=== PATIENT | female | born 1980 | race Caucasian/White ===

== ENCOUNTER 2019-05-10 18:28 | Emergency (ER) | payer OTHER, SELFPAY ==
--- NOTE | 2019-05-10 18:41 | ED.GENADULT ---
HPI - General Adult General Chief complaint: Chest Pain Stated complaint: vomiting/chest pain Time Seen by Provider: 05/10/19 18:41 Source: patient Mode of arrival: ambulatory Limitations: no limitations History of Present Illness HPI narrative: 38-year-old female patient presents to the [facility] with complaints of vomiting and upper chest burning that started approximately 2 hours ago after she ate some barbecue chicken. Patient states she has been having some upper chest burning especially when she lays down at night for the past couple of days. States that the vomiting started today. Patient has been worked up for something similar to this before in the past and did have an EKG done which she states was normal at that time. Denies any coughing, shortness of breath. Denies any abdominal pain, or diarrhea. Patient did vomit prior to being checked into the [facility] today. Related Data Home Medications Medication Instructions Recorded Confirmed amlodipine 10 mg DAILY 05/10/19 05/10/19 bupropion HCl 100 mg PO BID 05/10/19 05/10/19 fluoxetine 20 mg DAILY 05/10/19 05/10/19 losartan 50 mg DAILY 05/10/19 05/10/19 pantoprazole 40 mg PO DAILY 05/10/19 05/10/19 Allergies Allergy/AdvReac Type Severity Reaction Status Date / Time No Known Allergies Allergy Verified 05/10/19 18:47 Review of Systems Review of Systems: Narrative: CONSTITUTIONAL: Denies fever, chills, or sweats. EYES: Denies visual changes, redness, or discharge. ENT: Denies rhinorrhea, congestion, sore throat, or otalgia. CARDIOVASCULAR: Positive upper burning chest pain, denies palpitations, or edema. RESPIRATORY: Denies cough or dyspnea. GASTROINTESTINAL: Denies abdominal pain, positive nausea, vomiting, denies diarrhea. GENITOURINARY: Denies dysuria or hematuria. SKIN: Denies rash or itching. MUSCULOSKELETAL: Denies back pain, joint pain, or myalgia. NEUROLOGIC: Denies headache, numbness, or weakness. PSYCHIATRIC: Denies anxiety or depression. [facility] Surgical History Surgical History (Updated 05/10/19 @ 18:43 by CHRISTOPHER Alcala) H/O adenoidectomy History of appendectomy Hx of tonsillectomy Social History Social History Gender identity (if verbalized by the patient): Female Comments At the time of my signature I agree with nursing past medical history, surgical, social, and family history. There is no relevant family history pertinent to the presenting complaint. Exam Narrative: Exam Narrative: GENERAL: Well-appearing, well-nourished, and in no acute distress. HEAD: Normocephalic, atraumatic. No tenderness noted to frontal maxillary sinuses on palpation. EYES: PERRLA and EOMI. ENT: Nares clear, no rhinorrhea or epistaxis. Mucous membranes moist. Bilateral TMs are clear no erythema or foreign bodies in the canal. Posterior pharynx no erythema, tonsillar margin, exudates or lesions present. NECK: Supple. No lymphadenopathy CHEST: Clear to auscultation. No respiratory distress. Patient able talk in clear complete sentences. HEART: Regular rate and rhythm. No murmur heard. Normal peripheral pulses. ABDOMEN: Soft, flat, nondistended. No guarding, rebound tenderness, or rigid. No pulsatilla masses. Bowel sounds present in all four quadrants. No organomegaly. Negative Rincon?s sign. No periumbicial tenderness. No Supra public tenderness or distension. Good femoral pulses bilaterally. No hernia noted. No scars or surface trauma. After exam patient did run to the bathroom and did have some active vomiting. EXTREMITIES: Normal range of motion. No edema. SKIN: Warm, dry, no rash. NEURO: No focal deficits. Alert and oriented x3. Course Reevaluation(s) Reevaluation #1: Reevaluated patient after her EKG was done and her Zofran was given. Patient states that she is feeling much better after receiving Zofran and is able to keep a little water down. Discussed with her that her EKG looks okay today h
[2019-05-10 18:43] VITALS: BP 151/87; PULSE 93; RESP 16; TEMP 37.2; O2SAT 98
[2019-05-10] MEDS: ONDANSETRON HCL ODT 4 MG TABLET PO (18:58)
--- NOTE | 2019-05-10 19:00 | ECG_ITS ---
Measurements Intervals [place] Rate: 106 P: 33 OH: 128 QRS: 1 QRSD: 89 T: 41 QT: 347 QTc: 463 Interpretive Statements SINUS TACHYCARDIA POSSIBLE LEFT ATRIAL ENLARGEMENT RSR' IN V1 OR V2, PROBABLY NORMAL VARIANT DELAYED PRECORDIAL R/S TRANSITION ABNORMAL ECG Electronically Signed On 05-11-2019 7:05:04 CDT by Larry Weber D.O.
== END 2019-05-10 19:22 | disposition home or self-care (01) ==
PROVIDERS: Emergency Provider Nurse Practitioner Family; PCP Physician Assistant
DX: K21.9 Gastro-esophageal reflux disease without esophagitis (principal); I10 Essential (primary) hypertension; R94.31 Abnormal electrocardiogram [ECG] [EKG]
CPT/HCPCS: 93005; 99213; A9270; G0463

== ENCOUNTER 2019-09-09 11:48 | Emergency (ER) | payer OTHER, SELFPAY ==
--- NOTE | ~2019-09-09 | CT_ITS ---
EXAMINATION: CT abdomen pelvis w con DATE: 09/09/2019 13:07 INDICATION: Mid abdominal pain. Lower back pain. Right flank pain. TECHNIQUE: Computed tomography (CT) of the abdomen and pelvis was performed with 100 cc Omnipaque 350 intravenous contrast. Automated exposure control and iterative reconstruction technique were employe d. Exam dose: 651.02 mGy-cm total exam DLP. COMPARISON: None. FINDINGS: The lower lung delaney are clear of infiltrate or consolidation. Heart size is within normal range. No pericardial or pleural effusion. Small sliding hiatal hernia. There are several stones in the region of the gallbladder neck pain, measuring up to 1.8 cm. The gall bladder wall measures up to approximately 2 mm thickness. No pericholecystic fluid or stranding is de tected. No bile duct or pancreatic duct dilatation. No hepatic or pancreatic space-occupying mass lesion or pancreatic calcification. Normal splenic size . No renal space occupying mass lesion or urinary tract calculus or hydroureteronephrosis. The urinary bladder is unremarkable. Bilateral fallopian tube inserts. The uterus is present. No adnexal mass lesion is detected. Normal caliber of the abdominal aorta. No intraperitoneal or retroperitoneal or pelvic mass lesion or adenopathy or ascites. No bowel obstruction, bowel wall thickening, pneumatosis or intraperitoneal free air. Probable append ectomy. Included skeletal structures are unremarkable. No suspicious osteolytic or osteoblastic lesions are n oted. IMPRESSION: Cholelithiasis Small sliding hiatal hernia Bilateral fallopian tube inserts Reviewed, dictated and finalized at [facility] Reviewed, dictated and finalized at [facility].
[2019-09-09 11:53] VITALS: BP 130/82; PULSE 89; RESP 18; TEMP 36.1; O2SAT 99
--- NOTE | 2019-09-09 12:10 | ED.ABDPAIN ---
HPI - Abdominal Pain General Chief Complaint: Abdominal Pain Stated Complaint: rt flank pain, rt abd pain Time Seen by Provider: 09/09/19 12:01 Source: patient Mode of arrival: ambulatory Limitations: no limitations History of Present Illness HPI narrative: 39 year old female with history of GERD who presents for evaluation of lower back pain and mid abdominal pain. This patient reports she has been having mild abdominal pain intermittently x 1 month. She also reports intermittently wakes up in the morning with nausea and vomiting. She has had no nausea or vomiting in 2 weeks. She states she thinks this is due to taking her GERD medication at night instead of the morning. She also reports lower back pain x 1 month. She is unable describe what makes pain better or worse. She has not taken anything for pain. Related Data Home Medications Medication Instructions Recorded Confirmed amlodipine 10 mg DAILY 05/10/19 05/10/19 bupropion HCl 100 mg PO BID 05/10/19 05/10/19 fluoxetine 20 mg DAILY 05/10/19 05/10/19 losartan 50 mg DAILY 05/10/19 05/10/19 pantoprazole 40 mg PO DAILY 05/10/19 05/10/19 Allergies Allergy/AdvReac Type Severity Reaction Status Date / Time No Known Allergies Allergy Verified 09/09/19 12:00 Review of Systems Constitutional: Constitutional: Denies chills and Denies fever(s) Respiratory: Respiratory: Denies cough and Denies dyspnea Gastrointestinal: Gastrointestinal: Reports abdominal pain, Reports nausea and Reports vomiting Genitourinary: Genitourinary: Reports nocturia and Reports urinary urgency PMFSH Past Medical History Medical History (Updated 09/09/19 @ 14:27 by Shameka Contreras MD) GERD (gastroesophageal reflux disease) Surgical History Surgical History (Updated 05/10/19 @ 18:43 by CHRISTOPHER Alcala) H/O adenoidectomy History of appendectomy Hx of tonsillectomy Social History Social History Gender identity (if verbalized by the patient): Female Exam Narrative: Exam Narrative: GENERAL: Well-appearing, well-nourished, and in no acute distress. HEAD: Normocephalic, atraumatic EYES: PERRLA and EOMI, conjunctiva clear without discharge THROAT:Mucous membranes moist, NECK: Supple, RESPIRATORY: No respiratory distress, Airway patent, Respirations non-labored, Clear to auscultation without rales, rhonchi or wheeze HEART: Regular rate and rhythm. No murmur heard. Normal peripheral pulses. ABDOMEN: Soft, nontender, nondistended, normal active bowel sounds. No masses. No rebound or guarding, No organomegaly. EXTREMITIES: No edema, normal strength with full range of motion. SKIN: Warm, dry, normal color without rash NEURO: Alert and oriented x3. CN 2-12 grossly intact. No focal deficits. PSYCH: Normal mood and affect. Course Reevaluation(s) Reevaluation #1: I Discussed with patient that CT shows gallstones. It is unclear if this etiology of her pain. She has not abdominal tenderness currently so she will be on low fat diet with follow up as outpatient. Date: 09/09/19 Time: 14:24 Vital Signs Vital signs: Vital Signs Temperature 97.0 F L 09/09/19 11:53 Pulse Rate 89 09/09/19 11:53 Respiratory Rate 18 09/09/19 11:53 Blood Pressure 130/82 09/09/19 11:53 Pulse Oximetry 99 09/09/19 11:53 Temperature 97.0 F L 09/09/19 13:13 Pulse Rate 80 09/09/19 13:14 Respiratory Rate 18 09/09/19 13:14 Blood Pressure 118/76 09/09/19 13:14 Pulse Oximetry 100 09/09/19 13:14 MDM - Abdominal Pain Lab Data Attestation: I reviewed the patient's lab results. Result diagrams: 09/09/19 12:14 09/09/19 12:14 Labs: Lab Results 09/09/19 09/09/19 09/09/19 Range/Units 12:14 12:14 12:14 WBC 11.5 H (4.5-10.0) K/mm3 RBC 4.65 (4.2-5.4) M/mm3 Hgb 14.3 (12.0-15.0) g/dL Hct 43.2 (37.0-47.0) % MCV 92.9 (80-100) fl MCH 30.8 (26-34) p
[2019-09-09] MEDS: ONDANSETRON INJ 4 MG/2 ML VIAL IV PUSH (12:14)
[2019-09-09] MEDS: KETOROLAC 30 MG/ML VIAL (*BKC) IV PUSH (12:14)
[2019-09-09 12:31] LABS: Basophils Absolute Auto 0.1 K/mm3 (0.0-0.1); Basophils Percent Auto 0.7 % (0.2-1.2); Eosinophils Absolute Auto 0.3 K/mm3 (0-0.3); Eosinophils Percent Auto 2.5 % (0-4.4); Hematocrit 43.2 % (37.0-47.0); Hemoglobin 14.3 g/dL (12.0-15.0); Immature Granulocyte Absolute 0.03 K/mm3 (0.00-0.031); Immature Granulocyte Percent A 0.3 % (0-0.5); Lymphocytes Absolute Auto 1.41 K/mm3 (0.9-3.2); Lymphocytes Percent Auto 12.3 % (18.3-44.2); Mean Corpuscular HGB Conc 33.1 g/dl (32-36); Mean Corpuscular Hemoglobin 30.8 pg (26-34); Mean Corpuscular Volume 92.9 fl (80-100); Mean Platelet Volume 10.9 fl (7.4-10.4); Monocytes Absolute Auto 0.6 K/mm3 (0.1-0.6); Monocytes Percent Auto 5.6 % (2.6-8.5); Neutrophils Percent Auto 78.6 % (45.5-73.1); Platelet Count Result 347 k/mm3 (150-375); Red Blood Count 4.65 M/mm3 (4.2-5.4); White Blood Count 11.5 K/mm3 (4.5-10.0)
[2019-09-09 12:38] LABS: Add Urine Microscopic? YES; Appearance Urine Cloudy (Clear); Bilirubin Urine Negative (Negative); Blood Urine Negative (Negative); Color Urine Yellow (Yellow); Glucose Urine UA Negative (Negative); Ketones Urine Negative (Negative); Leukocyte Esterase Ur Negative LEU/UL (Negative); Mucus Urine Heavy /lpf; Nitrate Urine Negative (Negative); Protein Urine Negative (Negative); Specific Grav Ur 1.029 (1.001-1.035); Squamous Epithelial Cell Urine Many /hpf (Few); Urobilinogen Urine Negative mg/dL (<2.0); WBC Urine 0-3 /hpf
[2019-09-09 12:43] LABS: Alanine Aminotransferase 21 U/L (4-35); Albumin Level 4.5 g/dL (3.5-5.1); Alkaline Phosphatase 118 U/L (38-126); Anion Gap 13.8 mmol/L (7-16); Aspartate Amino Transferase 24 U/L (14-36); Bilirubin,Total 0.2 mg/dL (0.2-1.3); Blood Urea Nitrogen 9 mg/dL (7-17); Carbon Dioxide 24 mmol/L (22-30); Chloride 104 mmol/L (98-107); Estimated CRCL calculation 105 ml/min; Estimated Glomerular Filt Rate > 60; Glucose 110 mg/dL (65-105); Lipase 72 U/L (23-300); Potassium 3.8 mmol/L (3.4-5.0); Sodium 138 mmol/L (137-145)
[2019-09-09 13:13] VITALS: TEMP 36.1
[2019-09-09 13:14] VITALS: BP 118/76; PULSE 80; RESP 18; O2SAT 100
== END 2019-09-09 14:50 | disposition home or self-care (01) ==
PROVIDERS: Emergency Provider General Practice; PCP Physician Assistant
DX: K80.20 Calculus of gallbladder without cholecystitis without obstruction (principal); K21.9 Gastro-esophageal reflux disease without esophagitis; K44.9 Diaphragmatic hernia without obstruction or gangrene
CPT/HCPCS: 36415; 74177; 80053; 81001; 81025; 83690; 85025; 96374; 96375; 99284; J1885; J2405; Q9967

== ENCOUNTER 2019-09-27 12:46 | Outpatient (CLI) | payer OTHER, SELFPAY ==
[2019-09-27 13:28] LABS: Amylase 81 U/L (30-110)
== END 2019-09-27 12:47 | disposition home or self-care (01) ==
PROVIDERS: PCP Physician Assistant; Visit Provider Surgery
DX: K80.10 Calculus of gallbladder with chronic cholecystitis without obstruction (principal)
CPT/HCPCS: 36415; 82150; 86850; 86900; 86901

== ENCOUNTER 2019-10-09 00:30 | Outpatient (CLI) | payer OTHER, SELFPAY ==
[2019-10-09 19:34] LABS: SARS-CoV-2 RNA PCR Negative
== END 2019-10-09 00:31 | disposition home or self-care (01) ==
LOC: ANHCOVIDDT 00:30
PROVIDERS: PCP Physician Assistant; Visit Provider Surgery
DX: Z01.812 Encounter for preprocedural laboratory examination (principal); Z20.828 Contact with and (suspected) exposure to other viral communicable diseases
CPT/HCPCS: 87635; C9803; U0003

== ENCOUNTER 2019-10-11 02:17 | Day surgery (SDC) | payer OTHER, SELFPAY ==
[2019-09-25 13:31] VITALS: BMI 31.4
[2019-10-11] VITALS (11 sets, daily range): BP systolic 99–137; BP diastolic 59–88; PULSE 68–84; RESP 12–19; TEMP 36.5–36.8; O2SAT 92–99
[2019-10-11] MEDS: KETOROLAC 15 MG/ML VIAL (*BKC) IV PUSH (10:24)
[2019-10-11] MEDS: LACTATED RINGERS 1,000 ML 30 ML IV CONT ×2 (10:24→13:02)
[2019-10-11] MEDS: ACETAMINOPHEN 500 MG TABLET 1000 MG PO (10:25)
[2019-10-11] MEDS: SCOPOLAMINE 1.5 MG PATCH TRANSDERM (10:40)
--- NOTE | 2019-10-11 10:54 | WPDHPUPDATE1 ---
History and Physical Update Update Date/Time: 10/11/19 10:54 History and Physical has been reviewed, including an updated exam of the patient. There are NO changes in the patient's condition. Risks, benefits, and alternatives have been discussed and questions answered. Patient agrees to proceed with procedure.
--- NOTE | 2019-10-11 11:32 | WPDANESEPPF ---
Anes - Initial Pre Proc Eval Procedure: Operation Date: 10/11/19 12:00 Proposed Procedures p Laparoscopic Cholecystectomy - Jane Burns MD Date/Time: 10/11/19 11:32 Surgeon: Jane Burns MD Pre Op Diagnosis: Chronic Cholecystitis With Cholelithiasis Patient Data Age: 39 Gender: F Height: 5 ft 7 in Weight: 90.5 kg Last Vital Signs Temp 36.8 C 10/11/19 10:57 Pulse 82 10/11/19 10:57 Resp 18 10/11/19 10:57 BP 127/81 10/11/19 10:57 Pulse Ox 99 10/11/19 10:57 Allergies Allergy/AdvReac Type Severity Reaction Status Date / Time No Known Allergies Allergy Verified 10/11/19 10:20 Home Medications Medication Instructions Recorded Confirmed Type amlodipine 10 mg PO HS 05/10/19 10/11/19 History bupropion HCl 100 mg PO BID 05/10/19 10/11/19 History fluoxetine 20 mg PO DAILY 05/10/19 10/11/19 History losartan 50 mg PO HS 05/10/19 10/11/19 History pantoprazole 40 mg PO DAILY 05/10/19 10/11/19 History Patient hx anesthesia problems: post op nausea/vomiting Family hx anesthesia problems: none PMFSH Past Medical History Medical History Depression GERD (gastroesophageal reflux disease) Hypertension Surgical History Surgical History H/O adenoidectomy History of appendectomy History of placement of ear tubes Hx of tonsillectomy Social History Social History Smoking packs per day: 0.5 Smoking cigarettes per day: 10.0 Years smoked: 10 Smoking pack-years: 5.00 Smoking status: Former smoker Tobacco type: cigarettes Second hand tobacco smoke exposure: No Smoking end date: 02/25/09 Alcohol intake: current Drinks per week: 2 Substance use: never Living arrangements: alone Additional occupation/education comments: [employer] Gender identity (if verbalized by the patient): Female Spiritual care concerns: No Anes - Eval Final PreProcedure Day of Procedure 08/26/20 11:32 Patient weight: obese Heart: regular rate and rhythm Lungs: decreased breath sounds Airway: Mallampati scale class II Neurological: alert and oriented Last oral intake: >/= 8 hours ASA classification: III Emergent: no Anesthetic plan: proceed Anesthesia type and monitoring: general ETT and standard monitoring Informed Consent: The patient's anesthetic plan and its attendant risks and benefits were discussed with the patient/family/POA. Questions were solicited and answers provided to the satisfaction of the patient/family/POA.
[2019-10-11] MEDS: ceFAZolin 2 GM/D5W 50 ML 2 GM/50 ML BAG IVPB (11:51)
[2019-10-11] MEDS: BUPIVACAINE/EPINEPHRINE 0.5% 30 ML VIAL INFILTRATE (12:19)
--- NOTE | 2019-10-11 13:22 | PM.PROC ---
Procedure Note - Detailed Date of procedure: 10/11/19 Pre-op diagnosis: Chronic Cholecystitis With Cholelithiasis Post-op diagnosis: other (acute hydrops cholecystitis, cholelithiasis) Procedure performed: laparoscopic cholecystectomy Description of procedure: The patient was taken to the operating room placed in the supine position. After adequate induction of general anesthesia, the patient was prepped and draped in normal sterile fashion. A time-out was then performed to verify the patient's identity as well as the procedure being performed. I then made a 5 mm incision in the infraumbilical region. Through this, a Veress needle was placed into the peritoneal cavity and CO2 gas was then insufflated. After adequate pneumoperitoneum was achieved, the Veress needle was removed and a 5 mm trocar was placed through this incision. I then placed the laparoscope through this trocar site and under direct visualization placed a further 12 mm subxiphoid port as well as 2 additional 5 mm ports in the right upper abdomen. The gallbladder was then identified and was noted to be very inflamed and distended. Given the inflammation and distension, I had to decompress the GB c an ovarian needle. At this point, it was noted the pt had acute hydrops cholecystitis. I was then able to place a grasper at the dome of the gallbladder and this was retracted anterior and cephalad up over the liver. A 2nd retractor was then placed at the infundibulum and retracted laterally, this allowed visualization of the triangle of Calot. I then was able to visualize the cystic duct in its entirety from its proximal insertion into the gallbladder, to its distal junction with the common hepatic/common bile duct junction. The GB was noted to be quite inflammed and friable, a large stone was noted to be impacted at the neck of the GB. At this point, I carefully skeletonized the proximal cystic duct with the [place] dissector. I then clipped and transected the proximal cystic duct. Next I visualized the cystic artery. Again the artery was skeletonized, clipped, and transected. I then used the Bovie cautery to take down the peritoneal attachments of the gallbladder off the liver bed. Once the gallbladder specimen was completely detached, an endo-pouch was placed through the 12 mm port site. I then placed the gallbladder specimen into the Endo pouch and removed the endo-pouch from the 12 mm port site. The specimen will now be sent to pathology for further review. I then copiously irrigated the right upper quadrant. Hemostasis was noted in the liver bed, the clips were noted to be in good position on both the cystic duct stump and the cystic artery stump. No other pathology was noted in the right upper quadrant. I then moved the laparoscope to the subxiphoid port. No iatrogenic injury or other pathology was noted in the lower abdomen. At this point, the abdomen was desufflated and all ports removed. The fascia of the 12 mm subxiphoid port was closed with a 0 Vicryl figure of 8 suture. All port sites were then closed with 4.O Monocryl subcuticular sutures. Dermabond was placed on each incision. The patient tolerated the procedure well, was extubated in the operating room postoperative and will be transferred to the recovery room in stable condition. Implants: none Anesthesia: GETA Surgeon: Jane Burns MD Estimated blood loss (mL): 10 Drains: No Packing: No Pathology: yes Complications: No immediate complications Condition: stable Disposition: PACU Findings: acute hydrops cholecystitis, cholelithiasis
== END 2019-10-11 16:10 | disposition home or self-care (01) ==
PROVIDERS: PCP Physician Assistant; Visit Provider Surgery
PROC: 0FT44ZZ Resection of Gallbladder, Percutaneous Endoscopic Approach (ICD-10-PCS; CPT 47562; principal; 2019-10-11 12:00)
DX: K80.00 Calculus of gallbladder with acute cholecystitis without obstruction (principal); K82.8 Other specified diseases of gallbladder; K82.1 Hydrops of gallbladder; I10 Essential (primary) hypertension; K21.9 Gastro-esophageal reflux disease without esophagitis; F32.9 Major depressive disorder, single episode, unspecified; E66.9 Obesity, unspecified; Z68.31 Body mass index [BMI] 31.0-31.9, adult; Z87.891 Personal history of nicotine dependence
CPT/HCPCS: 47562; 88304; A9270; J0690; J1100; J1170; J1885; J2250; J2405; J2704; J2710; J3010; J7030; J7120

== ENCOUNTER 2022-06-28 14:32 | Emergency (ER) | payer OTHER, SELFPAY ==
[2022-06-28 14:47] VITALS: BP 126/106; PULSE 100; RESP 12; TEMP 36.9; O2SAT 98
--- NOTE | 2022-06-28 15:30 | ED.URI ---
HPI - URI/Sore Throat General Chief Complaint: Upper Respiratory Infection Stated Complaint: Sinus/Cough/Throat Time Seen by Provider: 06/28/22 15:30 Source: patient and RN notes reviewed Mode of arrival: ambulatory Limitations: no limitations History of Present Illness HPI Narrative: 42-year-old female presented for complaint of cough for 3 days. Cough is nonproductive and causes chest pain and wheezing with coughing at times. Denies associated shortness of breath, wheezing, nausea vomiting, fevers or chills. She took 1 allergy tablet yesterday without any change in symptoms. Declines testing for virus/strep. Denies sick contacts. MD elicited complaint: cough Related Data Allergies Allergy/AdvReac Type Severity Reaction Status Date / Time No Known Allergies Allergy Verified 06/28/22 14:35 Review of Systems Review of Systems: CONSTITUTIONAL: Denies malaise, chills, sweats, fever EYES: Denies visual changes, redness, or discharge ENT: Reports rhinorrhea, denies sinus pain, otalgia, sore throat CARDIOVASCULAR: Denies chest pain, palpitations, edema RESPIRATORY: Reports cough, post nasal drainage. Denies dyspnea GASTROINTESTINAL: Denies abdominal pain, nausea, vomiting, diarrhea SKIN: Denies rash or itching MUSCULOSKELETAL: Denies myalgia NEUROLOGIC: Denies headache PMFSH Past Medical History Medical History Depression GERD (gastroesophageal reflux disease) Hypertension Surgical History Surgical History H/O adenoidectomy History of appendectomy History of placement of ear tubes Hx of tonsillectomy Social History Social History Smoking packs per day: 0.5 Smoking cigarettes per day: 10.0 Years smoked: 10 Smoking pack-years: 5.00 Smoking status: Former smoker Tobacco type: cigarettes Second hand tobacco smoke exposure: No Smoking end date: 02/25/09 Alcohol intake: current Drinks per week: 2 Substance use: never Living arrangements: alone Occupation/Education: occupation 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 TM pearly betancourt with dull light reflex bilaterally; no tragal tenderness. Oropharynx erythematous, tonsils 2+ without exudate, no drooling, no hoarseness, no trismus, uvula midline. NECK: Supple. No lymphadenopathy CHEST: Clear to auscultation, breath sounds equal. No wheezing, rhonchi, rales, or stridor. No respiratory distress, speaks in full sentences. HEART: Regular rate and rhythm. No murmur heard. SKIN: Warm, dry, no rash. NEURO: Alert and oriented x3. PSYCH: Normal mood and affect Course Course Emergency Course: Patient is aware of diagnosis, understands and agrees to treatment plan. Anticipatory guidance given. Patient agrees to follow-up as directed and is aware of reasons to seek care at the emergency department. Portions of this record may have been created with voice recognition software Level of Care: Express Care Visit Vital Signs Vital signs: Vital Signs Temperature 98.5 F 06/28/22 14:47 Pulse Rate 100 06/28/22 14:47 Respiratory Rate 12 06/28/22 14:47 Blood Pressure 126/106 H 06/28/22 14:47 Pulse Oximetry 98 06/28/22 14:47 Oxygen Delivery Room Air 06/28/22 14:47 Temperature 98.5 F 06/28/22 14:47 Pulse Rate 100 06/28/22 14:47 Respiratory Rate 12 06/28/22 14:47 Blood Pressure 126/106 H 06/28/22 14:47 Pulse Oximetry 98 06/28/22 14:47 Oxygen Delivery Room Air 06/28/22 14:47 reviewed MDM - URI/Sore Throat MDM Narrative Medical decision making narrative: Discussed physical exam findings. Advised supportive measur
== END 2022-06-28 15:43 | disposition home or self-care (01) ==
PROVIDERS: Emergency Provider Nurse Practitioner Family; PCP Physician Assistant
DX: B34.9 Viral infection, unspecified (principal); Z87.891 Personal history of nicotine dependence; K21.9 Gastro-esophageal reflux disease without esophagitis; I10 Essential (primary) hypertension
CPT/HCPCS: 99213; G0463

== ENCOUNTER 2022-08-03 17:18 | Emergency (ER) | payer OTHER, SELFPAY ==
[2022-08-03 17:57] VITALS: BP 153/93; PULSE 98; RESP 16; TEMP 36.8; O2SAT 100
--- NOTE | 2022-08-03 18:05 | ED.URI ---
HPI - URI/Sore Throat General Chief Complaint: Upper Respiratory Infection Stated Complaint: Sore Throat Time Seen by Provider: 08/03/22 18:06 History of Present Illness HPI Narrative: 42-year-old female presenting for complaint of sore throat yesterday. Also reports cough for about 3 weeks now productive of green sputum. She denies shortness of breath, wheezing, nausea, vomiting, fevers or chills. Denies known sick contacts. She is not taking anything for symptoms. Related Data Allergies Allergy/AdvReac Type Severity Reaction Status Date / Time No Known Allergies Allergy Verified 06/28/22 14:35 Review of Systems Review of Systems: CONSTITUTIONAL: Denies body aches, fever, chills, or sweats. EYES: Denies visual changes, redness, or discharge. ENT: Reports sore throat denies rhinorrhea, congestion, or otalgia. CARDIOVASCULAR: Denies chest pain, palpitations, or edema. RESPIRATORY: Reports cough denies dyspnea. GASTROINTESTINAL: Denies abdominal pain, nausea, vomiting, or diarrhea. SKIN: Denies rash, itching, or wounds. MUSCULOSKELETAL: Denies back pain, joint pain, or myalgia. NEUROLOGIC: Denies headache PMFSH Past Medical History Medical History Depression GERD (gastroesophageal reflux disease) Hypertension Surgical History Surgical History H/O adenoidectomy History of appendectomy History of placement of ear tubes Hx of tonsillectomy Social History Social History Smoking packs per day: 0.5 Smoking cigarettes per day: 10.0 Years smoked: 10 Smoking pack-years: 5.00 Smoking status: Former smoker Tobacco type: cigarettes Second hand tobacco smoke exposure: No Smoking end date: 02/25/09 Alcohol intake: current Drinks per week: 2 Substance use: never Living arrangements: alone Occupation/Education: occupation 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 EYES: conjunctivae clear ENT: Mucous membranes moist. Oropharynx erythematous without lesions. Tonsils enlarged 2+ with exudate. No drooling, no hoarseness, no trismus, uvula midline. No tripod positioning, hot potato voice, or soft palate swelling. NECK: Supple. No lymphadenopathy CHEST: Clear to auscultation, breath sounds equal. No respiratory distress, speaks in full sentences. HEART: Regular rate and rhythm. No murmur heard. SKIN: Warm, dry, no rash. NEURO: Alert and oriented x3. Course Course Emergency Course: Patient is aware of diagnosis, understands and agrees to treatment plan. Anticipatory guidance given. Patient agrees to follow-up as directed and is aware of reasons to seek care at the emergency department. Portions of this record may have been created with voice recognition software Level of Care: Express Care Visit Vital Signs Vital signs: Vital Signs Temperature 98.3 F 08/03/22 17:57 Pulse Rate 98 08/03/22 17:57 Respiratory Rate 16 08/03/22 17:57 Blood Pressure 153/93 H 08/03/22 17:57 Pulse Oximetry 100 08/03/22 17:57 Oxygen Delivery Room Air 08/03/22 17:57 Temperature 98.3 F 08/03/22 17:57 Pulse Rate 98 08/03/22 17:57 Respiratory Rate 16 08/03/22 17:57 Blood Pressure 153/93 H 08/03/22 17:57 Pulse Oximetry 100 08/03/22 17:57 Oxygen Delivery Room Air 08/03/22 17:57 MDM - URI/Sore Throat MDM Narrative Medical decision making narrative: strep result reviewed with pt. Will send abx at this time due to PE and cc. Advise supportive treatments. Patient is appropriate for outpatient treatment and follow-up. Differential Diagnosis Differential diagnosis: Likely upper respiratory infection, viral infection and pharyn
== END 2022-08-03 18:45 | disposition home or self-care (01) ==
PROVIDERS: Emergency Provider Nurse Practitioner Family; PCP Physician Assistant
DX: J02.9 Acute pharyngitis, unspecified (principal); Z87.891 Personal history of nicotine dependence; K21.9 Gastro-esophageal reflux disease without esophagitis; I10 Essential (primary) hypertension
CPT/HCPCS: 87081; 87880; 99213; G0463

== ENCOUNTER 2023-10-15 09:26 | Emergency (ER) | payer OTHER, SELFPAY ==
--- NOTE | ~2023-10-15 | XR_ITS ---
Clinical Indication: Cough PA and lateral views of the chest: Comparison: None Findings: The lungs are clear, without evidence of focal consolidation or pleural effusion. Cardiome diastinal silhouette is within normal limits. Bones and soft tissues are unremarkable. Impression: Normal chest. Reviewed, dictated and finalized at location . Impression: Normal chest.
[2023-10-15 09:38] VITALS: BP 174/108; PULSE 99; RESP 20; TEMP 36.6; O2SAT 99
--- NOTE | 2023-10-15 10:13 | ED.URI ---
HPI - URI/Sore Throat General Chief Complaint: Upper Respiratory Infection Stated Complaint: Cough,chest tightness, SOB Time Seen by Provider: 10/15/23 10:13 Source: patient, RN notes reviewed and old records reviewed Mode of arrival: ambulatory Limitations: no limitations History of Present Illness HPI Narrative: Patient presents with complaints of 4 day history of runny nose,, body aches. She reports negative COVID at work yesterday. She reports she is having difficulty sleeping due to her symptoms. Patient is hypertensive, she admits that she does not take her medications as prescribed. She is unable to say when she last took her blood pressure medications. She denies any fever, chills, sweats. Denies headache Related Data Allergies Allergy/AdvReac Type Severity Reaction Status Date / Time No Known Allergies Allergy Verified 10/15/23 10:06 Review of Systems Review of Systems: All systems reviewed & are unremarkable except as noted in HPI and below Constitutional: Constitutional: Reports no additional constitutional complaints, Reports body ache(s) and Reports lethargy ENT: Reports system reviewed and no additional complaints, except as documented and Reports as per HPI Cardiovascular: Cardiovascular: Reports as per HPI and Reports no additional cardiovascular complaints Respiratory: Respiratory: Reports as per HPI and Reports no additional respiratory complaints Gastrointestinal: Gastrointestinal: Reports no additional gastrointestinal complaints Musculoskeletal: Musculoskeletal: Reports no additional musculoskeletal complaints and Reports as per HPI [facility] Past Medical History Medical History (Updated 10/15/23 @ 11:12 by Karina Kauffman APRN) Depression GERD (gastroesophageal reflux disease) Hypertension Surgical History Surgical History H/O adenoidectomy History of appendectomy History of placement of ear tubes Hx of tonsillectomy Social History Social History Smoking packs per day: 0.5 Smoking cigarettes per day: 10.0 Years smoked: 10 Smoking pack-years: 5.00 Smoking status: Former smoker Tobacco type: cigarettes Second hand tobacco smoke exposure: No Smoking end date: 02/25/09 Alcohol intake: current Drinks per week: 2 Substance use: never Living arrangements: alone Occupation/Education: occupation 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 There is no relevant family history pertinent to the patient complaint. Exam Narrative: Lung sounds improved after neb treatment and 1 dose of steroids. Discussed elevated blood pressure at length. Patient admits she has not been taking medication. She does have prescribed medication at home. She reports she will take it when she gets there and monitor her pressure. She verbalizes understanding of importance of taking all medications as prescribed Const: General: cooperative, no acute distress, alert and awake Orientation/consciousness: oriented to person, oriented to place and oriented to time HENMT: Head: normal to inspection Resp: Effort & Inspection: normal respiratory effort and able to speak in complete sentences Auscultation: clear to auscultation bilaterally, no crackles, no rales, no rhonchi and no wheezes Cardio: Palpation: normal PMI Rate: regular rate Rhythm: regular rhythm Heart sounds: S1 normal heart sound present and S2 normal heart sound present Neuro: General: oriented to person, oriented to place and oriented to time Cranial nerves: Yes CN's II-XII intact bilaterally Psych: Appearance: grossly normal Thought process: Normal thought process present Insight: Good insight
[2023-10-15] MEDS: predniSONE 20 MG TABLET 60 MG PO (10:35)
[2023-10-15] MEDS: IPRATROPIUM 0.5 MG/ALBUTEROL SULFATE 2.5 MG AMPUL.NEB 3 ML INHALATION (10:36)
[2023-10-15 10:40] LABS: EDINFLUASCREEN Negative; EDINFLUBSCREEN Negative
[2023-10-15 11:09] VITALS: BP 180/120
== END 2023-10-15 11:30 | disposition home or self-care (01) ==
PROVIDERS: Emergency Provider Nurse Practitioner Family; PCP Physician Assistant
DX: J06.9 Acute upper respiratory infection, unspecified (principal); Z87.891 Personal history of nicotine dependence; K21.9 Gastro-esophageal reflux disease without esophagitis; I10 Essential (primary) hypertension
CPT/HCPCS: 71046; 87804; 94640; 99213; G0463; J7512

== ENCOUNTER 2024-03-13 16:50 | Emergency (ER) | payer OTHER, SELFPAY ==
[2024-03-13 16:53] VITALS: BP 188/119; PULSE 91; RESP 16; TEMP 36.4; O2SAT 100
--- NOTE | 2024-03-13 18:13 | ED_ITS ---
HPI - Female Genitourinary General Chief complaint: Urogenital-Female Stated complaint: UTI Time Seen by Provider: 03/13/24 18:06 Source: patient and RN notes reviewed Mode of arrival: ambulatory Limitations: no limitations History of Present Illness HPI Narrative: Patient presents today complaining of dysuria, low back pain, hesitancy, and low abdominal pain since yesterday. Denies fever. She has been taking Tylenol with some relief. No recent antibiotics. States she has not taken her blood pressure medication today. Related Data Home Medications ?Medication ?Instructions ?Recorded ?Confirmed ?Last Taken ?Type amlodipine 10 mg tablet mg 03/13/24 Unknown History atorvastatin 20 mg tablet mg 03/13/24 Unknown History fluoxetine 20 mg capsule mg 03/13/24 Unknown History losartan 100 mg tablet mg 03/13/24 Unknown History metoprolol succinate 50 mg mg PO 03/13/24 Unknown History tablet,extended release 24 hr Allergies Allergy/AdvReac Type Severity Reaction Status Date / Time No Known Allergies Allergy Verified 03/13/24 16:54 Review of Systems Review of Systems: CONSTITUTIONAL: Denies body aches, fever, chills, or sweats. EYES: Denies visual changes, redness, or discharge. ENT: Denies rhinorrhea, congestion, sore throat, or otalgia. CARDIOVASCULAR: Denies chest pain, palpitations, or edema. RESPIRATORY: Denies cough or dyspnea. GASTROINTESTINAL: Denies abdominal pain, nausea, vomiting, or diarrhea. GENITOURINARY: + dysuria, hesitancy, low back pain SKIN: Denies rash, itching, or wounds. MUSCULOSKELETAL: Denies joint pain, or myalgia. NEUROLOGIC: Denies headache, numbness, tingling, or weakness. PSYCH: Denies depression or anxiety. [facility] Past Medical History Medical History Depression Hypertension GERD (gastroesophageal reflux disease) Surgical History Surgical History History of placement of ear tubes Hx of tonsillectomy H/O adenoidectomy History of appendectomy Social History Social History Smoking packs per day: 0.5 Smoking cigarettes per day: 10.0 Years smoked: 10 Smoking pack-years: 5.00 Smoking status: Former smoker Tobacco type: cigarettes Second hand tobacco smoke exposure: No Smoking end date: 02/25/09 Alcohol intake: current Drinks per week: 2 Substance use: never Living arrangements: alone Occupation/Education: occupation Additional occupation/education comments: [employer] Gender identity (if verbalized by the patient): Female Spiritual care concerns: No Comments At time of signature, I have reviewed and agree with nursing past medical, surgical, social and family history unless otherwise noted. Please see nursing chart for further information. There is no relevant family history pertinent to the presenting complaint Exam Narrative: GENERAL: Well-appearing, well-nourished, and in no acute distress. HEAD: Normocephalic, atraumatic. EYES: EOMI. No redness or drainage. Conjunctivae normal. ENT: Mucous membranes pink and moist. NECK: Normal AROM. CHEST: No respiratory distress. Clear to auscultation. HEART: Regular rate and rhythm. No murmur appreciated. ABDOMEN: Soft, nontender, nondistended, normal active bowel sounds. -CVAT MUSCULOSKELETAL: No bony tenderness. EXTREMITIES: Normal range of motion. No edema. SKIN: Warm, dry, no rash. Capillary refill normal. Normal skin turgor. NEURO: No focal deficits. Alert and oriented x3. Gait steady. PSYCH: Normal affect. No signs of depression or anxiety. Course Course Level of Care: Express Care Visit Vital Signs Vital signs: Vital Signs Temperature 97.5 F L 03/13/24 16:53 Pulse Rate 91 03/13/24 16:53 Respiratory Rate 16 03/13/24 16:53 Blood Pressure 188/119 H 03/13/24 16:53 Pulse Oximetry 100 03/13/24 16:53 Oxygen Delivery Room Air 03/13/24 16:53 Temperature 97.5 F L 03/13/24 16:53 Pulse Rate 91 03/13/24 16:53 Respiratory Rate 16 03/13/24 16:53 Blood Pressure 188/119 H 03/13/24 16:53 Pulse Oximetry 100 03/13/24 16:53 Oxygen Delivery Room Air 03/13/24 16:53 Reviewed MDM - Female Genitourinary MDM Narrative Medical decision making narrative: Urinalysis is consistent with UTI. Prescription for Augmentin sent to pharmacy. Culture pending. Anticipatory guidance given. ED precautions given. Differential Diagnosis Differential diagnosis: Likely urinary tract infection, vaginitis, cystitis and other (Pyelonephritis) Lab Data Attestation: I reviewed the patient's lab results. Labs: Lab Results 03/13/24 Range/Units 17:17 POC Urine Color Yellow POC Urine Clarity Cloudy POC Urine pH 6.0 POC Ur Specif [place] 1.030 POC Urine Protein 3+ (Negative) POC Ur Glucose (UA) Negative (Negative) POC Urine Ketones Trace (Negative) POC Urine Blood 2+ (Negative) POC Urine Nitrite Negative (Negative) POC Urine Bilirubin Negative (Negative) POC Urine Urobilinogen 0.2 POC U Leukocyte Esteras Trace (Negative) Critical Care Time Critical Care Time Critical Care Time: No Discharge Plan Discharge Clinical Impression: Urinary tract infection Qualifiers: Urinary tract infection type: acute cystitis Hematuria presence: with hematuria Qualified Code(s): N30.01 - Acute cystitis with hematuria Patient Disposition: Home, Self-Care Condition: Stable Instructions: Antibiotic Form, Urinary Tract Infection in Women (DC) Additional Instructions: Your urine shows infection today. Take Augmentin as prescribed until gone. Your urine will be sent of for a culture to identify what type of bacteria is causing your infection. If the culture shows that your medication will not get rid of your infection, you will be notified and a new antibiotic will be called in for you. If your symptoms worsen to include fever, sweats, chills, nausea, vomiting, severe abdominal or back pain, please go to the ER for further evaluation. Please take your blood pressure medication today. Your blood pressure was elevated above 120/80 today at Urgent Care. This puts you above the threshold for follow up. Please schedule a followup visit with your personal physician as soon as possible, for further evaluation and treatment. Even blood pressure exceeding 120/80 may indicate pre-hypertension. Patient Language: Malian Prescriptions: New amoxicillin-pot clavulanate 875-125 mg tablet 1 tablet PO Q12H 7 Days Qty: 14 0RF No Action atorvastatin 20 mg tablet metoprolol succinate 50 mg tablet extended release 24 hr PO amlodipine 10 mg tablet losartan 100 mg tablet fluoxetine 20 mg capsule Follow-up/Referrals: Dwayne,ROMINA La [Primary Care Provider] - Time of Disposition: 18:12
[2024-03-13 18:16] LABS: EDUAAPPEAR Cloudy; EDUABILI Negative (Negative); EDUABLOOD 2+ (Negative); EDUACOLOR1 Yellow; EDUAGLUCOSE Negative (Negative); EDUAKETONE Trace (Negative); EDUALEUKO Trace (Negative); EDUANITRATE Negative (Negative); EDUAPROTEIN 3+ (Negative); EDUAUROBILI 0.2
== END 2024-03-13 18:19 | disposition home or self-care (01) ==
PROVIDERS: Emergency Provider Nurse Practitioner; PCP Physician Assistant
DX: N30.01 Acute cystitis with hematuria (principal); B96.20 Unspecified Escherichia coli [E. coli] as the cause of diseases classified elsewhere; Z87.891 Personal history of nicotine dependence; I10 Essential (primary) hypertension; K21.9 Gastro-esophageal reflux disease without esophagitis
CPT/HCPCS: 81003; 87086; 87186; 99213; G0463